=== PATIENT | female | born 1975 | race American Indian/Alaskan Native ===

== ENCOUNTER 2021-05-04 11:00 | Outpatient (CLI) | payer OTHER | END 2021-05-04 11:01 | disposition home or self-care (01) | LOC: SLR 11:00 | PROVIDERS: ATTEND Dentist | DX: G47.30 Sleep apnea, unspecified (principal) | CPT/HCPCS: 95810 ==

== ENCOUNTER 2021-09-09 12:22 | Outpatient (CLI) | payer BC ==
[2021-09-09 12:53] LABS: Hematocrit 42.8 % (30.3-42.9); Hemoglobin 14.6 gm/dl (10.1-14.3); Mean Corpuscular HGB Conc 34 % (30-34); Mean Corpuscular Volume 94 fl (79-97); Platelet Count 280 K/mm3 (140-440); Red Blood Count 4.57 M/mm3 (3.65-5.03); Red Cell Distribution Width 14.2 % (13.2-15.2)
[2021-09-09 13:15] LABS: ABG Base Excess -1.4 mmol/L (-2.0-3.0); ABG HCO3 22.2 mmol/L (20.0-26.0); ABG Methemoglobin 0.6 % (0.0-1.5); ABG Oxygen Saturation 97.7 % (95.0-99.0); ABG PCO2 34.4 mm Hg; ABG PH 7.428 pH Units (7.350-7.450); ABG PO2 101.9 mm Hg (80.0-90.0)
[2021-09-09 13:16] LABS: Alanine Aminotransferase 14 units/L (7-56); Albumin 3.8 g/dL (3.9-5); BUN/Creatinine Ratio 17; Blood Urea Nitrogen 15 mg/dL (7-17); Calcium 8.6 mg/dL (8.4-10.2); HDL Cholesterol 55 mg/dL (40-59); Hemolysis Index 6; Iron 73 ug/dL (37-170); LDL Cholesterol,Direct 94 mg/dL (50-130)
== END 2021-09-09 12:23 | disposition home or self-care (01) ==
LOC: LAB 12:22
PROVIDERS: ATTEND Internal Medicine
DX: G47.36 Sleep related hypoventilation in conditions classified elsewhere (principal); E78.00 Pure hypercholesterolemia, unspecified; G47.61 Periodic limb movement disorder; F32.1 Major depressive disorder, single episode, moderate; Z68.41 Body mass index [BMI] 40.0-44.9, adult
CPT/HCPCS: 36415; 36600; 80053; 80061; 82607; 82728; 82747; 82803; 83540; 84436; 84443; 85027

== ENCOUNTER 2021-09-15 17:09 | Outpatient (CLI) | payer BC ==
--- NOTE | 2021-09-15 17:35 | XRay Report ---
CHEST 2 VIEWS INDICATION / CLINICAL INFORMATION: G47.36. COMPARISON: 03/19/12. FINDINGS: SUPPORT DEVICES: None. HEART / MEDIASTINUM: The heart size and pulmonary vasculature are normal. LUNGS / PLEURA: No significant pulmonary or pleural abnormality. No pneumothorax. ADDITIONAL FINDINGS: No significant additional findings. IMPRESSION: No acute abnormality or significant change. Signer Name: Michael Mendez MD Signed: 09/15/2021 5:31 PM Workstation Name: [id number]
== END 2021-09-15 17:10 | disposition home or self-care (01) ==
LOC: XRAY 17:09
PROVIDERS: ATTEND Internal Medicine
DX: F32.A Depression, unspecified (principal); G47.36 Sleep related hypoventilation in conditions classified elsewhere; G47.61 Periodic limb movement disorder; E78.00 Pure hypercholesterolemia, unspecified; Z68.41 Body mass index [BMI] 40.0-44.9, adult
CPT/HCPCS: 71046